=== PATIENT | female | born 1940 | race Caucasian/White ===

== ENCOUNTER 2022-08-10 10:32 | Inpatient (IN) | payer OTHER, MEDICARE ==
[~2022-08-10] VITALS: Ht 177.8 cm; Wt 88.8 kg
[2022-08-10] MEDS ORDERED: NAPR220 PO (23:49)
--- NOTE | 2022-08-11 01:45 | NUR ---
NEW ADMIT PATIENT ARRIVED VIA EMS FROM [facility] @0000. L HIP FX. L LEG IS EXTRERNALLY ROTATED WITH SHORTENING OF LEG. REPOSITIONED FOR COMFORT. PAITENT DENIES N/T IN EXTREMITIES AND IS ABLE TO WIGGLE TOES, AND FEET BILAT. PATIENT IS GOOD HISTORIAN, ABLE TO USE CALL LIGHT AND MAKE NEEDS KNOWN. ALERT AND ORIENTED TO ROOM. CALVILLO CATH IN PLACE DRAINGING TO GRAVITY, STAT LOCK IN PLACE. HOSPITALIST TO ROOM TO ASSESS PATIENT AND PUT IN ORDERS.
--- NOTE | 2022-08-11 04:40 | NUR ---
SHIFT SUMMARY NO ACUTE EVENTS SINCE ADMIT. ORDERS RECIEVED. IV FLUIDS INFUSING, PATIENT NPO FOR POSSIBLE SURGERY TODAY. REPOSITIONS EASILY, MEDICATED FOR PAIN WITH RELIEF. CALVILLO CHANGED PER PROTOCOL. PATIENT TOLERATED WELL. AWAITING DR MOREIRA CONSULT FOR POSSIBLE NEPHROSTOMY DRAIN PLACEMENT. PATIENT CURRENTLY ON ABX FOR UTI. ORTHO CONSULT FOR HIP FX. DENIES N/T, DENIES CHEST PAIN, SOB, LUNG SOUNDS CLEAR. VSS. CALL LIGHT IN REACH.
[2022-08-11 05:09] LABS: BASOPHILS ABSOLUTE AUTO 0.05 K/mm3 (0.00-0.23); BASOPHILS PERCENT AUTO 1 % (0-2); EOSINOPHILS PERCENT AUTO 15 % (0-6); Hematocrit 32.5 % (33.0-51.0); Hemoglobin 10.2 g/dL (11.5-16.0); IMMATURE GRAN ABSOLUTE AUTO 0.02 K/mm3 (0.00-0.10); IMMATURE GRAN PERCENT AUTO 0 % (0-1); LYMPHOCYTES ABSOLUTE AUTO 1.02 K/mm3 (0.84-5.20); LYMPHOCYTES PERCENT AUTO 15 % (21-46); MONOCYTES ABSOLUTE AUTO 0.67 K/mm3 (0.16-1.47); MONOCYTES PERCENT AUTO 10 % (4-13); Mean Corpuscular HGB 30.3 pg (26.0-34.0); Mean Corpuscular HGB Conc 31.4 g/dL (31.5-36.5); Mean Corpuscular Volume 96 fL (80-100); Mean Platelet Volume 11.5 fL (9.1-12.4); NEUTROPHILS ABSOLUTE AUTO 4.11 K/mm3 (1.96-9.15); NEUTROPHILS PERCENT AUTO 60 % (41-73); Platelet Count 153 K/mm3 (150-400); RDW Coefficient Variation 14.6 % (11.7-14.2); RDW Standard Deviation 51.8 fL (35.1-46.3); Red Blood Cell Count 3.37 M/mm3 (3.80-5.20); White Blood Cell Count 6.87 K/mm3 (4.00-11.30)
[2022-08-11 05:22] LABS: International Normalized Ratio 1.14; Prothrombin Time Results 11.9 Sec (9.7-11.5)
[2022-08-11 05:30] LABS: Albumin, Blood 2.3 g/dL (3.4-5.0); Albumin/Globulin Ratio 0.8 (0.8-1.8); Bilirubin, Total 0.5 mg/dL (0.1-1.0); Bun/Creatinine Ratio 27.6 (12.0-20.0); Calcium, Blood 8.7 mg/dL (8.5-10.1); Creatinine, Blood 0.51 mg/dL (0.40-1.00); Globulin, Blood 2.9 g/dL (2.2-4.0); Potassium, Blood 3.7 mmol/L (3.5-5.5); Total Protein, Blood 5.2 g/dL (6.4-8.2)
[2022-08-11 05:57] LABS: Source, Urine Foley catheter
[2022-08-11 06:01] LABS: Bilirubin, Urine Neg (Neg); Blood, Urine 1+ (Neg); Glucose Qualitative, Urine Neg (Neg); Ketones, Urine 1+ (Neg); Leukocyte Esterase, Urine 1+ (Neg); Nitrite, Urine Neg (Neg); Protein, Urine Neg (Neg); Specific Gravity, Urine 1.025 (1.003-1.022); Urobilinogen, Urine NORM (Normal)
[2022-08-11 06:16] LABS: Appearance, Urine Clear (Clear); Color, Urine Yellow (P-Yellow)
[2022-08-11 06:21] LABS: Bacteria Rare /hpf
[2022-08-11 06:22] LABS: Squamous Epithelial Cells Few /hpf (Few)
--- NOTE | 2022-08-11 08:37 | NUR ---
DR MOREIRA'S OFFICE NOTIFIED THIS RN THAT DR MOREIRA IS NOT EQUIPMENT OPERATING ENGINEER AT THIS TIME. THIS RN NOTIFIED THE HOSPITALIST WHO ASKED FOR THE IR CONSULT. SPOKE WITH DR FERRIS & GAVE NO FURTHER ORDERS.
--- NOTE | 2022-08-11 11:13 | NUR ---
Pt. is in bed and welcomes my visit. Pt. asked me to address a question for someone on the phone. Spouse is present. Pt. is unsettled about the impact of her coming multiple procedures. Listened theraputically with a calming presence. Was able to normalize the pt. experience. Pt. displayed evidence of having a strong motivation, and engagement in her recovery. Establish rapport. Prayed with Pt. and spouse. Both verbalized gratitude for the spiritual care visit.
--- NOTE | 2022-08-11 13:25 | NUR ---
PATIENT TO DAY SURGERY VIA BED WITH TO TEMPLATE MAKER'S.
--- NOTE | 2022-08-11 14:54 | NUR ---
08/11/22 1454 Ted Coreas VANCOMYCIN STARTED PRE OPERATIVELY
--- NOTE | 2022-08-11 16:30 | NUR ---
PATIENT RETURNED TO ROOM FORM PACU. VSS, ON 2L O2 TO MAINTAIN SATS >92%. LULNGS CLEAR. X2 BULKY DRESSINGS TO LEFT HIP, C/D/I. PATIENT REPORTS MINIMAL PAIN AT THIS TIME. CALL LIGHT IN REACH.
--- NOTE | 2022-08-11 18:17 | NUR ---
SHIFT SUMMARY NO ACUTE CHANGES SINCE RETURN TO FLOOR. VSS ON 2L O2. PAIN MANAGED PER EMAR. X2 DRESSINGS TO LEFT HIP, C/D/I. EATING & DRINKING WELL. CALVILLO REMAINS IN PLACE. CALLS APPROPRIATELY, WILL REPORT TO ONCOMING RN.
--- NOTE | 2022-08-12 04:41 | NUR ---
[place] PILOT SUMMARY PT IS POD 0 FOR L HIP REPAIR. SURGICAL SITES X2 C/D/I, NO DRAINAGE NOTED TO DRESSINGS. PT AAOX4 AND PLEASANT. REPORTS LITTLE TO NO PAIN THROUGH THE NIGHT UNLESS MOVING AROUND, DENIES NEED FOR PAIN MEDS. HAS BEEN COMFORTABLE WITH ICE PACK TO L HIP. CONTINUES SCHEDULED IV ABX PER EMAR. VSS, WILL CONTINUE TO MONITOR.
[2022-08-12 04:44] LABS: BASOPHILS PERCENT AUTO 0 % (0-2); EOSINOPHILS PERCENT AUTO 0 % (0-6); Hematocrit 27.1 % (33.0-51.0); IMMATURE GRAN ABSOLUTE AUTO 0.02 K/mm3 (0.00-0.10); IMMATURE GRAN PERCENT AUTO 0 % (0-1); LYMPHOCYTES ABSOLUTE AUTO 0.54 K/mm3 (0.84-5.20); LYMPHOCYTES PERCENT AUTO 9 % (21-46); MONOCYTES ABSOLUTE AUTO 0.24 K/mm3 (0.16-1.47); MONOCYTES PERCENT AUTO 4 % (4-13); Mean Corpuscular HGB 31.6 pg (26.0-34.0); Mean Corpuscular HGB Conc 33.2 g/dL (31.5-36.5); Mean Corpuscular Volume 95 fL (80-100); Mean Platelet Volume 11.3 fL (9.1-12.4); NEUTROPHILS ABSOLUTE AUTO 5.35 K/mm3 (1.96-9.15); NEUTROPHILS PERCENT AUTO 87 % (41-73); Platelet Count 137 K/mm3 (150-400); RDW Standard Deviation 49.4 fL (35.1-46.3); Red Blood Cell Count 2.85 M/mm3 (3.80-5.20); White Blood Cell Count 6.15 K/mm3 (4.00-11.30)
[2022-08-12 05:06] LABS: Bun/Creatinine Ratio 37.3 (12.0-20.0); Calcium, Blood 9.1 mg/dL (8.5-10.1); Creatinine, Blood 0.46 mg/dL (0.40-1.00); Magnesium, Blood 1.8 mg/dL (1.6-2.4)
--- NOTE | 2022-08-12 14:21 | NUR ---
Pt. is awake in bed and welcomes my visit. Pt. is moved to tears as she had been missing her bible. When a bible could not be found in her bedside drawer, this detail supervisor provided a large print bible. Pt. displayed evidence of being encouraged and that her spiritual care was an answer to prayer. Lamp Wirer also assisted Pt. in retrieving some phone numbers of family members. Prayed with Pt. and Pt. verbalized gratitude for the spiritual care visit.
--- NOTE | 2022-08-12 17:53 | NUR ---
SHIFT SUMMARY POD 1 LEFT HIP REPAIR. AQUACELS IN PLACE, CHANGED TODAY, C/D/I. WORKED WITH PT & OT TODAY AND TOLERATED WELL. TTWB LEFT LEG. MINIMAL PAIN REPORTED, MANAGED PER EMAR. EATING & DRINKING WELL. CALVILLO IN PLACE, DRAINING TO GRAVITY. CALLS APPROPRIATELY, IN REACH. WILL REPORT TO ONCOMING RN AT 1900.
--- NOTE | 2022-08-13 05:01 | NUR ---
POD2 FOR A LEFT HIP PINNING. CIRCULATION AND SENSATION REMAINS INTACT. AQUACELS ARE C/D/I. VSS. THE PATIENT SLEPT WELL T/O THE NIGHT. MEDICATED FOR PAIN WITH NORCO, WITH GOOD RESULTS. T/O THE NIGHT, WITH ENCOURAGEMENT, THE PATIENT HAS STARTED TO MOVE HER LEFT LEG INDEPENDENTLY AND REPOSITIONING HERSELF TO THE BEST OF HER ABILITY. SHE REPORTS NO PAIN THIS AM. CALVILLO REMAINS INPLACE AND PATENT, DRAINING CLEAR YELLOW URINE. PLAN FOR PT TO WORK WITH PT/OT UNTIL DISCHARGE TO SNF. THE PATIENT IS CURRENTLY RESTING IN BED, IN NO DISTRESS, CALL LIGHT IN REACH.
[2022-08-13 14:48] LABS: SARS-Cov-2 (COVID-19) PCR, MMC NEGATIVE (NEGATIVE)
--- NOTE | 2022-08-13 16:58 | NUR ---
PT AWAITING INSURANCE AUTH SO CAN DISCHARGE TO SNF. PT REPORTS EXCELLENT PAIN CONTROL. 2 PERSON ASSIST OOB TO CHAIR WITH USE OF WALKER AND GAIT BELT. PT HAS VOIDED AFTER CALVILLO REMOVAL. REPORTS OCC "TWINGE" OF PAIN IN LEFT FLANK WHICH SHE THINKS IS FROM KIDNEY STONE. PT DENIES FEELING CONSTIPATED, STATES SHE OFTEN GOES 1 WEEK BETWEEN HAVING A BM
--- NOTE | 2022-08-14 04:35 | NUR ---
SHIFT SUMMARY NO ACUTE CHANGES TO REPORT THIS SHIFT. DRESSING INTACT TO LEFT HIP, DRY AND INTACT SOME MILD SHADOWING ON DRESSING. SHE HAS BEEN UP AND AMBULATING TO THE [facility] [place]. PT IS STILL WEAK AND NEEDS LOTS OF VERBAL CUES WITH AMBULATION, 2 PERSON MAX ASSIST WITH FWW AND GAIT BELT. PT STILL COMPLAINING OF FLANK PAIN FROM KIDNEY STONE, WELL CONTINUED HIP/PELVIS PAIN POST OP. MEDICATED PER EMAR. RESTFUL NIGHT OVERALL, BED IN LOWEST POSITION, CALL LIGHT WITHIN REACH.
--- NOTE | 2022-08-14 15:53 | NUR ---
SHIFT SUMMARY PT A&OX4, VSS/RA/TELE NSR 67 BPM. POD3 LHIP NAILING, AQUACEL DRY/INTACT, TTWB, TRANSFERS 1 PP MOD ASSIST WITH FWW/GB. BEATRIZ PO. VOIDING WELL BSC. PAIN MANAGED WITH NORCO 5 MG. WILL REPORT TO ONCOMING NOC RN.
--- NOTE | 2022-08-14 17:33 | NUR ---
SHIFT SUMMARY ASSUMED CARE OF PT AT APPROXIMATELY 16:00. PT HAS BEEN STABLE, PAIN MANAGED PER EMR, AQUACEL CHANGED AND IS C/D/I. ASSISTED PT TO BSC W/ GAIT BELT. SHE RESTED COMFORTABLY THROUGHT THE SHIFT, ABLE TO MAKE NEEDS KNOWN. CALL LIGHT WITHIN REACH.
[2022-08-15 04:34] LABS: BASOPHILS ABSOLUTE AUTO 0.04 K/mm3 (0.00-0.23); BASOPHILS PERCENT AUTO 1 % (0-2); EOSINOPHILS ABSOLUTE AUTO 0.95 K/mm3 (0.00-0.68); EOSINOPHILS PERCENT AUTO 12 % (0-6); Hematocrit 25.2 % (33.0-51.0); Hemoglobin 8.4 g/dL (11.5-16.0); IMMATURE GRAN ABSOLUTE AUTO 0.05 K/mm3 (0.00-0.10); IMMATURE GRAN PERCENT AUTO 1 % (0-1); LYMPHOCYTES ABSOLUTE AUTO 1.55 K/mm3 (0.84-5.20); LYMPHOCYTES PERCENT AUTO 20 % (21-46); MONOCYTES ABSOLUTE AUTO 0.64 K/mm3 (0.16-1.47); MONOCYTES PERCENT AUTO 8 % (4-13); Mean Corpuscular HGB 31.2 pg (26.0-34.0); Mean Corpuscular HGB Conc 33.3 g/dL (31.5-36.5); Mean Corpuscular Volume 94 fL (80-100); Mean Platelet Volume 10.7 fL (9.1-12.4); NEUTROPHILS PERCENT AUTO 59 % (41-73); Platelet Count 162 K/mm3 (150-400); RDW Coefficient Variation 14.6 % (11.7-14.2); RDW Standard Deviation 50.2 fL (35.1-46.3); Red Blood Cell Count 2.69 M/mm3 (3.80-5.20); White Blood Cell Count 7.93 K/mm3 (4.00-11.30)
--- NOTE | 2022-08-15 05:48 | NUR ---
SHIFT SUMMARY PT A&OX4, PLEASANT AND COOPERATIVE WITH CARE. NO ACUTE CHANGES, VSS. PT DID NOT REQUIRE PAIN COVERAGE THIS SHIFT. TOLERATING PO INTAKE. AQUACEL HAS SHADOWING, HAS NOT REACHED EDGES YET. CALL LIGHT WITHIN REACH.
--- NOTE | 2022-08-15 15:56 | NUR ---
SHIFT SUMMARY PT A&OX4, VSS/RA/TELE NSR 68 BPM. POD4 LHIP NAILING, AQUACEL CHANGED THIS MORNING, CDI, TTWB, TRANSFERS 1 PP MOD ASSIST WITH FWW/GB. BEATRIZ PO. VOIDING WELL/BSC. PAIN MANAGED WITH TYLENOL. WILL REPORT TO ONCOMING NOC RN.
[2022-08-16 05:02] LABS: Hematocrit 25.6 % (33.0-51.0); Hemoglobin 8.3 g/dL (11.5-16.0)
--- NOTE | 2022-08-16 05:27 | NUR ---
SHIFT SUMMARY PT A&OX4, PLEASANT AND COOPERATIVE. NO ACUTE CHANGES, VSS. PT DID NOT NEED PAIN COVERAGE THIS SHIFT. TOLERATING PO INTAKE. VOIDING USING BSC WITH 1ASSIST FWW/GB. REPLACED UPPER AQUACEL, C/D/I. CALLS APPROPRIATELY, CALL LIGHT WITHIN REACH
[2022-08-16 13:58] LABS: SARS-Cov-2 (COVID-19) PCR, MMC NEGATIVE (NEGATIVE)
--- NOTE | 2022-08-16 14:57 | NUR ---
DISCHARGE PATIENT DOING WELL W/ THEAPY. 1P ASSIST W/ FWW & GB, TTWB L LEG. PAIN MANAGED WELL PER EMAR. EATING, DRINKING, & VOIDING WELL. AQUACELS CHANGED TODAY, C/D/I ON DISCHARGE. SENT ONE DRESSING FOR EACH INCISION IN DISCHARGE PACKET. ESCPRTED OUT VIA W/C WITH TRANSPORTER.
== END 2022-08-16 14:51 | DRG 481 ==
LOC: SURS 10:32
PROVIDERS: Family Medicine; Internal Medicine; Orthopaedic Surgery; ADMIT Internal Medicine
PROC: 0QS734Z Reposition Left Upper Femur with Internal Fixation Device, Percutaneous Approach (ICD-10-PCS; principal; 2022-08-11 14:00)
DX: S72.142A Displaced intertrochanteric fracture of left femur, initial encounter for closed fracture (principal); N13.2 Hydronephrosis with renal and ureteral calculous obstruction; N13.6 Pyonephrosis; D69.6 Thrombocytopenia, unspecified; D64.9 Anemia, unspecified; M19.011 Primary osteoarthritis, right shoulder; W01.0XXA Fall on same level from slipping, tripping and stumbling without subsequent striking against object, initial encounter; Z20.822 Contact with and (suspected) exposure to COVID-19; N36.8 Other specified disorders of urethra; R42 Dizziness and giddiness; R55 Syncope and collapse; Z96.659 Presence of unspecified artificial knee joint; Z98.890 Other specified postprocedural states; Z87.81 Personal history of (healed) traumatic fracture; Z88.5 Allergy status to narcotic agent
CPT/HCPCS: 36415; 73502; 76770; 80048; 80053; 81001; 83735; 85014; 85018; 85025; 85610; 87086; 97110; 97162; 97166; 97530; 97535; A9270; C1713; C1769; J0690; J0696; J1100; J1170; J1650; J2405; J2704; J3010; J3370; J7030; J7120; U0004